=== PATIENT | female | born 1950 ===

== ENCOUNTER 2019-02-19 07:36 | Outpatient (CLI) | payer OTHER ==
[~2019-02-19 07:36] MED LIST: NORVASC2.5 MG; SIMVASTATIN20 MG
== END 2019-02-19 07:42 | disposition home or self-care (01) ==
LOC: SONOGRAMA 07:36
DX: K76.0 Fatty (change of) liver, not elsewhere classified (principal)

== ENCOUNTER 2019-07-31 08:45 | Outpatient (CLI) | payer OTHER | END 2019-07-31 08:47 | disposition home or self-care (01) | LOC: RAD 08:45 | DX: M06.342 Rheumatoid nodule, left hand (principal) ==

== ENCOUNTER 2021-07-07 09:01 | Outpatient (CLI) | payer OTHER | END 2021-07-07 09:18 | disposition home or self-care (01) | LOC: SONOGRAMA 09:01 | PROVIDERS: ATTEND Family Medicine | DX: N20.0 Calculus of kidney (principal); R16.0 Hepatomegaly, not elsewhere classified ==

== ENCOUNTER 2022-06-30 08:20 | Outpatient (CLI) | payer OTHER | END 2022-06-30 08:28 | disposition home or self-care (01) | LOC: SONOGRAMA 08:20 | PROVIDERS: ATTEND Family Medicine | DX: K81.9 Cholecystitis, unspecified (principal); E04.1 Nontoxic single thyroid nodule ==

== ENCOUNTER 2024-05-15 08:18 | Outpatient (CLI) | payer OTHER | END 2024-05-15 08:24 | disposition home or self-care (01) | LOC: SONOGRAMA 08:18 | PROVIDERS: ATTEND Family Medicine | DX: M25.561 Pain in right knee (principal) ==